=== PATIENT | female | born 1960 | race Caucasian/White ===

== ENCOUNTER 2020-08-26 06:56 | Outpatient (NON) | payer MEDICARE, SELFPAY ==
[2020-08-27 16:30] LABS: SARS-CoV-2 RNA PCR Negative
== END 2020-08-26 06:57 ==
PROVIDERS: PCP Nurse Practitioner Family; Visit Provider Registered Nurse
DX: J18.9 Pneumonia, unspecified organism (principal); R53.83 Other fatigue; R50.9 Fever, unspecified; Z20.828 Contact with and (suspected) exposure to other viral communicable diseases
CPT/HCPCS: 87635; C9803; U0003

== ENCOUNTER 2021-05-26 10:13 | Outpatient (CLI) | payer OTHER, MEDICARE, SELFPAY ==
--- NOTE | ~2021-05-26 | NM_ITS ---
EXAMINATION: NM bone 3 phase DATE: 05/26/2021 13:51 INDICATION: Left knee pain TECHNIQUE: 21.8 mCi Tc-99m HDP by intravenous route. Scintigrams of the bilateral knees were obtaine d in angiographic, blood pool, and delayed phases. Additional delayed images of the bilateral distal calves, ankles and hindfeet were also obtained. COMPARISON: Bilateral knee and fused radiographs dated 01/12/2019 FINDINGS: Asymmetric increased uptake on delayed images at the lateral compartment of the left knee with corres ponding severe osteoarthritis on the prior radiographs. No abnormal increased uptake on the angiograp hic or immediate blood phase images to suggest an acute fracture or other acute inflammatory process. There is additional likely degenerative joint centered uptake on delayed images at the right midfoot region of the tarsal metatarsal joints where there is moderate osteoarthritis on the prior radiograp hs IMPRESSION: 1. Increased uptake on the delayed images at the lateral compartment of the left knee consistent wit h severe osteoarthritis as seen on the prior radiographs. No increased uptake on angiographic or leandra y blood pool images to suggest acute fracture or other acute inflammatory process. 2. Additional likely degenerative joint centered uptake at the right midfoot with moderate osteoarthr itis at the tarsometatarsal joints on the prior radiographs. Reviewed, dictated and finalized at location A. IMPRESSION: 1. Increased uptake on the delayed images at the lateral compartment of the le ft knee consistent with severe osteoarthritis as seen on the prior radiographs. No increased uptake on angiographic or early blood pool images to suggest acut e fracture or other acute inflammatory process. 2. Additional likely degenerative joint centered uptake at the right midfoot wi th moderate osteoarthritis at the tarsometatarsal joints on the prior radiograp hs.
== END 2021-05-26 10:14 | disposition home or self-care (01) ==
LOC: ANHIMG 10:27
PROVIDERS: PCP Nurse Practitioner Family; Visit Provider Orthopaedic Surgery
DX: M25.562 Pain in left knee (principal)
CPT/HCPCS: 78315; A9561